=== PATIENT | female | born 2000 | race Caucasian/White ===

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

== ENCOUNTER 2019-09-14 02:36 | Emergency (ER) | payer OTHER ==
[~2019-09-14] VITALS: Ht 172.7 cm; Wt 59.0 kg
[~2019-09-14 02:36] MED LIST: ALBMDI INH
[2019-09-14 02:40] VITALS: BP_SYST 135
--- NOTE | 2019-09-14 02:45 | NUR ---
Patient to ER bed 7 to gown for evaluation. Side rails up. Report given to Jaime DAVIES.
--- NOTE | 2019-09-14 02:50 | NUR ---
ER at bedside examining patient.
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
[2019-09-14] MEDS ORDERED: IBUPROFEN 600 MG TABLET PO ONE (03:30)
--- NOTE | 2019-09-14 03:40 | NUR ---
Patient transported to radiology via Wheelchair, accompanied by Ade.
[2019-09-14 05:13] VITALS: BP_SYST 135
--- NOTE | 2019-09-14 05:14 | NUR ---
Patient given written and verbal discharge instructions and verbalizes understanding. ER MD discussed with patient the results and treatment provided. Patient in stable condition. ID arm band removed. Rx of Naprosyn and Flexeril given. Patient educated on pain management and to follow up with PMD. Pain Scale 0. Opportunity for questions provided and answered. Medication side effect fact sheet provided.
== END 2019-09-14 05:14 | disposition home or self-care (01) ==
LOC: SED 02:36
DX: S43.402A Unspecified sprain of left shoulder joint, initial encounter (principal); S93.602A Unspecified sprain of left foot, initial encounter; S09.90XA Unspecified injury of head, initial encounter; Z91.040 Latex allergy status; W01.198A Fall on same level from slipping, tripping and stumbling with subsequent striking against other object, initial encounter; Y93.89 Activity, other specified; Y92.89 Other specified places as the place of occurrence of the external cause; Y99.8 Other external cause status
CPT/HCPCS: 73030; 99283; J7030